=== PATIENT | female | born 1955 | race Caucasian/White ===

== ENCOUNTER 2020-07-19 00:34 | Observation (INO) ==
[2020-07-19] MEDS ORDERED: ONDANSETRON INJ 2 MG/ML 2 ML VIAL ONE (01:13)
[2020-07-19] MEDS ORDERED: SODIUM CHLORIDE 0.9% 1000ML 1,000 ML IV SCH ×2 (01:30→13:00)
[2020-07-19 01:38] LABS: Basophils # (auto) 0.01 K/uL (0-0.2); Basophils % (auto) 0.1 %; Eosinophils # (auto) 0.04 K/uL (0-0.5); Eosinophils % (auto) 0.4 %; Hematocrit (blood only) 37.7 % (37-47); Hemoglobin 12.6 g/dL (12.0-16.0); Immature Granulocytes # (auto) 0.02 K/uL (0.00-0.02); Immature Granulocytes % (auto) 0.2 %; Lymphocytes # (auto) 1.14 K/uL (1.2-3.4); Mean Corpuscular Hemoglobin 30.6 pg (25-34); Mean Corpuscular Hgb Conc 33.4 g/dL (32-36); Mean Corpuscular Volume 91.5 fL (80-100); Mean Platelet Volume 10.3 fL (7.4-10.4); Monocytes # (auto) 0.54 K/uL (0.11-0.59); Monocytes % (auto) 4.7 %; Neutrophils # (auto) 9.67 K/uL (1.4-6.5); Neutrophils % (auto) 84.6 %; Platelet Count 185 K/uL (130-400); RDW Coefficient of Variation 12.8 % (11.5-14.5); RDW Standard Deviation 43.2 fL (36.4-46.3); Red Blood Count 4.12 M/uL (4.2-5.4); White Blood Count 11.42 K/uL (4.8-10.8)
--- NOTE | 2020-07-19 01:38 | Emergency Department Note ---
Impression & Plan Nausea vomiting and diarrhea ED Provider Note NAME: NISHA CAMPUZANO AGE: 64 SEX: F ARRIVES VIA: Walk-In INFORMANT: Patient and her ED PROVIDER(S): Joslyn Wyman DO CHIEF COMPLAINT: Nausea, vomiting, and diarrhea PLAN: [facility] Good MEDICAL DECISION MAKING: This is a healthy 64-year-old female patient who is visiting the area. She went to [facility] and had a calzone with mushroom, spinach, and mercedes and cheese. Around 10 PM this evening, she developed severe nausea, vomiting and diarrhea. She has had a similar event to this consistent with food poisoning. Triage Nursing notes reviewed and agree with them. Additional history obtained from her who accompanies her here. Vital Signs: reviewed and unremarkable Differential diagnosis: Foodborne illness, acute cholecystitis, cardiac ischemia ER treatment provided: IV normal saline IV Zofran x2 IV Compazine x2 Diagnostics interpreted by me: ECG: Normal sinus rhythm at a rate of [address] segment elevation or signs of ischemia. There is no ectopy. QTC is 456 ms. There are no previous EKGs for comparison. Cardiac Monitoring: Normal sinus rhythm at a rate of 93 Laboratory studies: See below HPI: 64/F arrives for evaluation of nausea, vomiting, and diarrhea. The patient ate a calzone with mushroom, spinach, mercedes and cheese around 1800 at a restaurant this evening. She felt fine before eating this food and felt fine afterwards until approximately 2200 when she developed severe nausea, vomiting and diarrhea. She denies any hematochezia or hematemesis. Patient presents here to the emergency department with severe crampy abdominal pain. Patient has no known past medical history. ROS: See above HPI for pertinent positives & negatives. A total of 10 systems reviewed and were otherwise negative. PAST MEDICAL HISTORY:None PAST SURGICAL HISTORY:Previous orthopedic surgery of the wrist and a hernia repair FAMILY HISTORY:See Below SOCIAL HISTORY:Patient is from [facility] MEDICATIONS:None ALLERGIES:None VITALS:See Below PHYSICAL EXAMINATION: HEENT: Head - normocephalic and atraumatic Pupils are equal, round, and reactive to light. Extraocular eye muscles are intact, and sclera are anicteric. Nose - moist nasal mucosa without discharge. Mouth - moist buccal mucosa. Oropharynx is nonerythematous and there is no tonsillar exudate or edema noted. Neck: Supple; no cervical lymphadenopathy or thyromegaly Heart: Regular rate and rhythm. There is a normal S1 and S2 with no murmurs, clicks, or gallops appreciated. Lungs: Clear to auscultation bilaterally with no wheezes, rales, or rhonchi. Abdomen: Soft, diffusely tender, nondistended, with good bowel sounds. There are no palpable pulsatile masses or hepatosplenomegaly. There is no guarding, rigidity, or rebound noted. Extremities: No evidence of cyanosis, clubbing, or edema. There are easily palpable peripheral pulses. Skin: warm and dry with good turgor and no rashes. ED COURSE: Times/Reassessments: 0105: Patient was evaluated in room B8. A complete history and physical was performed. An order was placed for continuous cardiac monitoring. The patient was in a normal sinus rhythm at a rate of 93. A twelve-lead EKG was obtained. An IV lock was initiated and labs were drawn as above. Normal saline bolus was given at 1 L. Patient was given 4 mg of IV Zofran. The patient rested for a period of time but she continued to complain of nausea. She was given a second dose of IV Zofran. I reviewed the results of the laboratory studies with the patient and her . She continued to complain of nausea and was given 5 mg of IV Compazine along with another 500 cc bolus of saline. Unfortunately, the patient is having uncontrollable diarrhea and persistent nausea and vomiting. She was given another dose of IV Compazine. We were unable to control the patient's vomiting and diarrhea here in the emergency department. I discussed the case with the [facility] hospitalist service and they will evaluate for further management. Joslyn Wyman DO Past Med/Surg History Social History Smoking Status: Never smoker Preferred Language: Albanian Allergies Allergies Allergy/AdvReac Type Severity Reaction Status Date / Time No Known Allergies Allergy Verified 07/19/20 01:22 Home Meds Home Medications Medication Instructions Recorded Confirmed No Known Home Medications 07/19/20 07/19/20 Results & Data (ED) Vital Signs Vital Signs - 24 hr 07/19/20 00:38 07/19/20 01:07 07/19/20 01:26 Temperature 36.3 C L Temperature Source Temporal Artery Scan Pulse Rate 93 H 79 79 Pulse Rate from SpO2 Sensor 79 80 Pulse Rhythm Regular Pulse Strength Normal Respiratory Rate 20 17 14 Blood Pressure 128/65 127/68 Blood Pressure Mean 86 87 Blood Pressure Position Sitting Pulse Oximetry 100 98 99 Oxygen Delivery Method Room Air Sepsis Recent Fever Within 48 Hours No Sepsis New/Unexplained Change in Mental Status No Sepsis Action Taken by Nursing No Action Required 07/19/20 01:30 07/19/20 01:31 07/19/20 01:36 Temperature Temperature Source Pulse Rate 83 78 82 Pulse Rate from SpO2 Sensor 84 78 Pulse Rhythm Regular Pulse Strength Respiratory Rate 18 15 20 Blood Pressure 117/66 Blood Pressure Mean 83 Blood Pressure Position Pulse Oximetry 99 100 98 Oxygen Delivery Method Room Air Sepsis Recent Fever Within 48 Hours Sepsis New/Unexplained Change in Mental Status Sepsis Action Taken by Nursing 07/19/20 02:00 07/19/20 02:01 07/19/20 02:30 Temperature Temperature Source Pulse Rate 79 82 89 Pulse Rate from SpO2 Sensor 79 82 90 Pulse Rhythm Pulse Strength Respiratory Rate 16 15 14 Blood Pressure 117/54 L 118/58 L Blood Pressure Mean 75 78 Blood Pressure Position Pulse Oximetry 93 98 97 Oxygen Delivery Method Sepsis Recent Fever Within 48 Hours Sepsis New/Unexplained Change in Mental Status Sepsis Action Taken by Nursing 07/19/20 02:31 07/19/20 03:00 07/19/20 03:01 Temperature Temperature Source Pulse Rate 93 H 97 H 101 H Pulse Rate from SpO2 Sensor 91 H 102 H Pulse Rhythm Pulse Strength Respiratory Rate 16 18 21 Blood Pressure 102/87 Blood Pressure Mean 92 Blood Pressure Position Pulse Oximetry 96 99 Oxygen Delivery Method Sepsis Recent Fever Within 48 Hours Sepsis New/Unexplained Change in Mental Status Sepsis Action Taken by Nursing 07/19/20 03:30 07/19/20 03:31 07/19/20 04:00 Temperature Temperature Source Pulse Rate 86 87 87 Pulse Rate from SpO2 Sensor 86 87 88 Pulse Rhythm Pulse Strength Respiratory Rate 15 18 20 Blood Pressure 120/68 118/57 L Blood Pressure Mean 85 77 Blood Pressure Position Pulse Oximetry 95 96 96 Oxygen Delivery Method Sepsis Recent Fever Within 48 Hours Sepsis New/Unexplained Change in Mental Status Sepsis Action Taken by Nursing 07/19/20 04:01 07/19/20 04:30 07/19/20 04:31 Temperature Temperature Source Pulse Rate 89 85 86 Pulse Rate from SpO2 Sensor 88 84 85 Pulse Rhythm Pulse Strength Respiratory Rate 16 19 18 Blood Pressure 119/55 L Blood Pressure Mean 76 Blood Pressure Position Pulse Oximetry 97 95 94 Oxygen Delivery Method Sepsis Recent Fever Within 48 Hours Sepsis New/Unexplained Change in Mental Status Sepsis Action Taken by Nursing 07/19/20 05:05 07/19/20 05:25 Temperature Temperature Source Pulse Rate 91 H 83 Pulse Rate from SpO2 Sensor 92 H 84 Pulse Rhythm Pulse Strength Respiratory Rate 17 18 Blood Pressure 117/65 Blood Pressure Mean 82 Blood Pressure Position Pulse Oximetry 96 96 Oxygen Delivery Method Sepsis Recent Fever Within 48 Hours Sepsis New/Unexplained Change in Mental Status Sepsis Action Taken by Nursing Laboratory Data Result diagrams: 07/19/20 01:17 07/19/20 01:17 Lab Results 07/19/20 07/19/20 07/19/20 Range/Units 01:17 01:17 06:35 WBC 11.42 H (4.8-10.8) K/uL RBC 4.12 L (4.2-5.4) M/uL Hgb 12.6 (12.0-16.0) g/dL Hct 37.7 (37-47) % MCV 91.5 (80-100) fL MCH 30.6 (25-34) pg MCHC 33.4 (32-36) g/dL RDW Std Deviation 43.2 (36.4-46.3) fL RDW Coeff of Jeet 12.8 (11.5-14.5) % Plt Count 185 (130-400) K/uL MPV 10.3 (7.4-10.4) fL Immature Gran % (Auto) 0.2 % Neut % (Auto) 84.6 % Lymph % (Auto) 10.0 % [place] % (Auto) 4.7 % Eos % (Auto) 0.4 % Baso % (Auto) 0.1 % Neut # (Auto) 9.67 H (1.4-6.5) K/uL Lymph # (Auto) 1.14 L (1.2-3.4) K/uL [place] # (Auto) 0.54 (0.11-0.59) K/uL Eos # (Auto) 0.04 (0-0.5) K/uL Baso # (Auto) 0.01 (0-0.2) K/uL Immature Gran # (Auto) 0.02 (0.00-0.02) K/uL Sodium 144 (136-145) mmol/L Potassium 4.0 (3.5-5.1) mmol/L Chloride 109 H (98-107) mmol/L Carbon Dioxide 31 (21-32) mmol/L Anion Gap 4.0 (3-11) BUN 15 (7-18) mg/dl Creatinine 0.84 (0.6-1.2) mg/dl Est Cr Clr Drug Dosing 62.5 ml/min Est GFR ( Amer) 86.3 ml/min Est GFR (Non-Af Amer) 74.5 ml/min BUN/Creatinine Ratio 17.9 (10-20) Glucose 118 H (70-99) mg/dl Calcium 8.5 (8.5-10.1) mg/dl Total Bilirubin 0.3 (0.2-1) mg/dl AST 21 (15-37) U/L ALT 28 (12-78) U/L Alkaline Phosphatase 89 (45-117) U/L Total Protein 7.3 (6.4-8.2) gm/dl Albumin 3.7 (3.4-5.0) gm/dl Globulin 3.6 (2.5-4.0) gm/dl Albumin/Globulin Ratio 1.0 (0.9-2) COVID-19 Eval Order Covid19 at [facility] Administered Medications Discontinued Medications Sodium Chloride (Nss 1000ml) 1,000 mls @ 999 mls/hr IV .Q1H1M ALISA Stop: 07/19/20 02:30 Last Infusion: 07/19/20 02:58 Dose: 0 mls/hr Documented by: [id number] Admin: 07/19/20 01:14 Dose: 999 mls/hr Documented by: [id number] Sodium Chloride (Nss) 500 mls @ 999 mls/hr IV .Q31M ONE Stop: 07/19/20 03:22 Last Infusion: 07/19/20 03:35 Dose: 0 mls/hr Documented by: [id number] Admin: 07/19/20 03:04 Dose: 999 mls/hr Documented by: [id number] Prochlorperazine (Compazine) 1 mls @ 1 mls/min IV ONE ONE Stop: 07/19/20 02:53 Last Admin: 07/19/20 03:04 Dose: 1 mls/min Documented by: [id number] Prochlorperazine (Compazine) 1 mls @ 1 mls/min IV ONE ONE Stop: 07/19/20 05:17 Last Admin: 07/19/20 05:21 Dose: 1 mls/min Documented by: [id number] Ondansetron HCl (Ondansetron Inj 2 Mg/Ml 2 Ml Vial) Confirm Administered Dose 4 mg .ROUTE .STK-MED ONE Stop: 07/19/20 01:14 Last Admin: 07/19/20 01:14 Dose: 4 mg Documented by: [id number] Ondansetron HCl (Ondansetron Inj 2 Mg/Ml 2 Ml Vial) 4 mg IV NOW STA Stop: 07/19/20 01:50 Last Admin: 07/19/20 01:54 Dose: 4 mg Documented by: [id number] Discharge Plan Visit Data Chief Complaint: GI Assessment Stated Complaint: FOOD POISONING ED Provider: Joslyn Wyman Discharge Problem: Nausea vomiting and diarrhea Forms Stand Alone Forms: [facility] Prescriptions Prescriptions: No Action No Known Home Medications RF: 0
[2020-07-19 01:49] LABS: Albumin Level 3.7 gm/dl (3.4-5.0); BUN Creatinine Ratio 17.9 (10-20); Calcium 8.5 mg/dl (8.5-10.1); Creatinine Clr Calc Pharmacy 62.5 ml/min; Est GFR (African American) 86.3 ml/min; Est GFR (Non-African American) 74.5 ml/min
[2020-07-19] MEDS ORDERED: ONDANSETRON INJ 2 MG/ML 2 ML VIAL IV STA (01:49)
[2020-07-19 01:52] LABS: Bilirubin,Total 0.3 mg/dl (0.2-1); Globulin 3.6 gm/dl (2.5-4.0); Total Protein 7.3 gm/dl (6.4-8.2)
[2020-07-19] MEDS ORDERED: SODIUM CHLORIDE 0.9% 500 ML IV ONE (02:52)
[2020-07-19] MEDS ORDERED: PROCHLORPERAZINE 1 ML IV ONE ×2 (02:52→05:16)
[2020-07-19] MEDS: SODIUM CHLORIDE 0.9% 500 ML IV SCH ×2 (08:02→11:37)
--- NOTE | 2020-07-19 09:13 | XRay Report ---
XR chest 1V portable HISTORY: Nausea. Vomiting. COMPARISON: None. FINDINGS: The lungs are clear. Cardiac silhouette is normal in size. No pleural effusions. No pneumot horax. IMPRESSION: No acute process. ACT 112: Negative or not required by law. Electronically signed by: Albert Martini M.D. 07/19/2020 9:11 AM
[2020-07-19] MEDS ORDERED: PROMETHAZINE HCL 6.25 MG in SODIUM CHLORIDE 0.9% 50 ML IV STA (09:29)
[2020-07-19] MEDS ORDERED: PROMETHAZINE 6.25 MG/50.25 ML BAG IV STA (09:30)
--- NOTE | 2020-07-19 09:41 | Hospitalist Consultation ---
Date of Consultation July 19, 2020 Assessment & Plan (1) Nausea vomiting and diarrhea: secondary to food intake, possible food poisoning already improved with zofran, compazine not as effective Got 1L NSS and finishing 500cc @ 125cc/hr currently Will try dose of Phergan IV x1, if improved, patient would like to go home Discussed plan with ER provider and to reassess after antiemetics and IVF for possible d/c today from ER Educated to return if febrile, worsening pain, blood in stool/vomiting, inability to keep up with hydration/intake or for any other symptoms concerning for her. Patient and agreed to above plan History of Present Illness Reason for Consultation: abdominal pain, n/v/d Requesting Physician: Dr Wyman Attending Physician: Dr Wyman History of Present Illness 64 yo female with PMHx significant only for small umbilical hernia repair with mesh. Was at [facility] last evening and had mushroom/spinach/mercedes calzone and developed subsequent n/v/d. She notes similar experience in the past with food poisoning. She notes she got zofran x 2 and compazine and typically is sensitive to medication. In the past, zofran has been effective, and her nausea has improved just not resolved. She has much less nausea, no further vomiting since 6:30-7am and diarrhea has slowed. No blood in stool, just liquid and had been copious but has slowed. No fever, chills chest pain, shortness of breath headache or other associated symptoms. They are from [place] and ideally would like to go home after trial of phenergan and finish her IVF. If she is able to tolerate diet and n/v controlled, will plan on discharge from ER. Discussed with ER physician regarding plan and will hope for discharge if above successful and resolving her issues. WBC elevated but likely reactive. EKG NSR. CXR no acute process. CMP without electrolyte abnormality or elevation in LFTs. Afebrile. VSS Allergies Allergy/AdvReac Type Severity Reaction Status Date / Time No Known Allergies Allergy Verified 07/19/20 01:22 Home Medications Medication Instructions Recorded Confirmed Type promethazine 12.5 mg PO Q6H PRN #10 tab 07/19/20 Rx Patient History Medical History (Updated 07/19/20 @ 09:36 by Elenita Herzog PA-C) Umbilical hernia Social History Smoking Status: Never smoker Preferred Language: Khmer Review of Systems Review of Systems: All systems reviewed & are unremarkable except as noted in HPI & below Constitutional: no fever and no chills Eyes: no diplopia and no eye pain Ear, Nose, Mouth, Throat: no sore throat and no dysphagia Respiratory: no cough and no dyspnea Cardiovascular: no chest pain and no dyspnea Gastrointestinal: + nausea (decreased) and + vomiting (less, no hematemesis or coffe ground emesis) Genitourinary: no difficulty urinating and no urinary urgency Physical Exam Constitutional: WD/WN, vitals as above cooperative and comfortable; no acute distress Eyes: + anicteric sclerae and PERRL ENMT: Ears: no hearing impairment and no external ear abnormality Neck: normal visual inspection and trachea midline Respiratory: normal respiratory effort, lungs clear to auscultation Cardiovascular: RRR, no murmur, no edema Gastrointestinal (Abdomen): Inspection/Auscultation: abdomen normal to inspection and normal bowel sounds; abdomen not distended Percussion/Palpation: + abdomen tender (minimal diffuse) and abdomen soft; no guarding and abdomen not rigid Musculoskeletal: no cyanosis or clubbing, extremities motor strength 5/5 Skin: no rashes, warm and dry Neurologic: PERRL, EOMI, accommodation nl, no face palsy, no dysarthria Psychiatric: A+Ox3, euthymic affect Lymphatic: no cervical or axillary lymphadenopathy Results & Data Results & Data ([facility]) Vital Signs (Past 12 Hours) Vital Signs Temp Pulse Resp BP Pulse Ox 07/19/20 09:00 85 15 109/64 97 07/19/20 08:31 81 15 96 07/19/20 08:30 83 15 111/60 96 07/19/20 08:02 81 17 95 07/19/20 08:01 88 20 111/64 96 07/19/20 08:00 91 H 14 95 07/19/20 07:31 80 22 96 07/19/20 06:39 84 17 112/59 L 96 07/19/20 06:38 87 22 95 07/19/20 05:31 78 16 96 07/19/20 05:30 79 16 120/67 96 07/19/20 05:26 80 23 96 07/19/20 05:25 83 18 117/65 96 07/19/20 05:05 91 H 17 96 07/19/20 04:31 86 18 94 07/19/20 04:30 85 19 119/55 L 95 07/19/20 04:01 89 16 97 07/19/20 04:00 87 20 118/57 L 96 07/19/20 03:31 87 18 96 07/19/20 03:30 86 15 120/68 95 07/19/20 03:01 101 H 21 102/87 99 07/19/20 03:00 97 H 18 07/19/20 02:31 93 H 16 96 07/19/20 02:30 89 14 118/58 L 97 07/19/20 02:01 82 15 98 07/19/20 02:00 79 16 117/54 L 93 07/19/20 01:36 82 20 98 07/19/20 01:31 78 15 100 07/19/20 01:30 83 18 117/66 99 07/19/20 01:26 79 14 99 07/19/20 01:07 79 17 127/68 98 07/19/20 00:38 36.3 C L 93 H 20 128/65 100 Laboratory Results 07/19/20 07/19/20 07/19/20 Range/Units 06:35 06:35 01:17 WBC (4.8-10.8) K/uL RBC (4.2-5.4) M/uL Hgb (12.0-16.0) g/dL Hct (37-47) % MCV (80-100) fL MCH (25-34) pg MCHC (32-36) g/dL RDW Std Deviation (36.4-46.3) fL RDW Coeff of Jeet (11.5-14.5) % Plt Count (130-400) K/uL MPV (7.4-10.4) fL Immature Gran % (Auto) % Neut % (Auto) % Lymph % (Auto) % [place] % (Auto) % Eos % (Auto) % Baso % (Auto) % Neut # (Auto) (1.4-6.5) K/uL Lymph # (Auto) (1.2-3.4) K/uL [place] # (Auto) (0.11-0.59) K/uL Eos # (Auto) (0-0.5) K/uL Baso # (Auto) (0-0.2) K/uL Immature Gran # (Auto) (0.00-0.02) K/uL Sodium 144 (136-145) mmol/L Potassium 4.0 (3.5-5.1) mmol/L Chloride 109 H (98-107) mmol/L Carbon Dioxide 31 (21-32) mmol/L Anion Gap 4.0 (3-11) BUN 15 (7-18) mg/dl Creatinine 0.84 (0.6-1.2) mg/dl Est Cr Clr Drug Dosing 62.5 ml/min Est GFR ( Amer) 86.3 ml/min Est GFR (Non-Af Amer) 74.5 ml/min BUN/Creatinine Ratio 17.9 (10-20) Glucose 118 H (70-99) mg/dl Calcium 8.5 (8.5-10.1) mg/dl Total Bilirubin 0.3 (0.2-1) mg/dl AST 21 (15-37) U/L ALT 28 (12-78) U/L Alkaline Phosphatase 89 (45-117) U/L Total Protein 7.3 (6.4-8.2) gm/dl Albumin 3.7 (3.4-5.0) gm/dl Globulin 3.6 (2.5-4.0) gm/dl Albumin/Globulin Ratio 1.0 (0.9-2) COVID-19 Eval Order Covid19 at [facility] SARS-CoV-2 (PCR) NEGATIVE (Negative) 07/19/20 Range/Units 01:17 WBC 11.42 H (4.8-10.8) K/uL RBC 4.12 L (4.2-5.4) M/uL Hgb 12.6 (12.0-16.0) g/dL Hct 37.7 (37-47) % MCV 91.5 (80-100) fL MCH 30.6 (25-34) pg MCHC 33.4 (32-36) g/dL RDW Std Deviation 43.2 (36.4-46.3) fL RDW Coeff of Jeet 12.8 (11.5-14.5) % Plt Count 185 (130-400) K/uL MPV 10.3 (7.4-10.4) fL Immature Gran % (Auto) 0.2 % Neut % (Auto) 84.6 % Lymph % (Auto) 10.0 % [place] % (Auto) 4.7 % Eos % (Auto) 0.4 % Baso % (Auto) 0.1 % Neut # (Auto) 9.67 H (1.4-6.5) K/uL Lymph # (Auto) 1.14 L (1.2-3.4) K/uL [place] # (Auto) 0.54 (0.11-0.59) K/uL Eos # (Auto) 0.04 (0-0.5) K/uL Baso # (Auto) 0.01 (0-0.2) K/uL Immature Gran # (Auto) 0.02 (0.00-0.02) K/uL Sodium (136-145) mmol/L Potassium (3.5-5.1) mmol/L Chloride (98-107) mmol/L Carbon Dioxide (21-32) mmol/L Anion Gap (3-11) BUN (7-18) mg/dl Creatinine (0.6-1.2) mg/dl Est Cr Clr Drug Dosing ml/min Est GFR ( Amer) ml/min Est GFR (Non-Af Amer) ml/min BUN/Creatinine Ratio (10-20) Glucose (70-99) mg/dl Calcium (8.5-10.1) mg/dl Total Bilirubin (0.2-1) mg/dl AST (15-37) U/L ALT (12-78) U/L Alkaline Phosphatase (45-117) U/L Total Protein (6.4-8.2) gm/dl Albumin (3.4-5.0) gm/dl Globulin (2.5-4.0) gm/dl Albumin/Globulin Ratio (0.9-2) COVID-19 Eval Order SARS-CoV-2 (PCR) (Negative) Diagnostic Findings Chest X-Ray 07/19/20 08:40 XR chest 1V portable HISTORY: Nausea. Vomiting. COMPARISON: None. FINDINGS: The lungs are clear. Cardiac silhouette is normal in size. No pleural effusions. No pneumothorax. IMPRESSION: No acute process. ACT 112: Negative or not required by law. Electronically signed by: Albert Martini M.D. 07/19/2020 9:11 AM PG Care Time/CCT Total # of Minutes Spent Total Time Spent with Patient: Total time spent is greater than 50% in coordination of care (as documented) at patient's floor/unit and/or counseling patient: Coding Level of Care Code 14149 Office/OBS Consult Lvl 3 Diagnoses Nausea vomiting and diarrhea R11.2; R19.7
[2020-07-19] MEDS ORDERED: LOPERAMIDE HCL 2 MG CAP PO STA (10:21)
--- NOTE | 2020-07-19 11:00 | History & Physical Report ---
Date of Service July 19, 2020 Assessment & Plan (1) Nausea vomiting and diarrhea: secondary to food intake, possible food poisoning -- ate calzone at [facility] mercedes/spinach/mushroom last evening prior to acute onset already improved with zofran, compazine not as effective Got 1L NSS and finishing 500cc @ 125cc/hr currently Observe to medical floor Pepcid IV BID Phenergan prn nausea Tylenol prn fever, pain NSS for overnight Stool cultures, WBC, cdiff Full liquid diet-- advance as tolerated Checking Lipase, KUB No fever WBC elevation likely secondary to n/v but will trend on AM labs UA ordered for n/v however did not endorse any urinary symptoms DVT proph -- SCDs, frequent ambulation. Low risk for DVT Full code Dispo: from [place], observation overnight with likely d/c in AM History of Present Illness Chief Complaint: n/v/d Primary Care Provider: NO PCP 64 yo female with PMHx significant only for small umbilical hernia repair with mesh. Was at [facility] last evening and had mushroom/spinach/mercedes calzone and developed subsequent n/v/d. She notes similar experience in the past with food poisoning. She notes she got zofran x 2 and compazine and typically is sensitive to medication. In the past, zofran has been effective, and her nausea has improved just not resolved. She has much less nausea, no further vomiting since 6:30-7am and diarrhea has slowed. No blood in stool, just liquid and had been copious but has slowed. No fever, chills chest pain, shortness of breath headache or other associated symptoms. They are from [place] and ideally would like to go home after trial of phenergan and finish her IVF. If she is able to tolerate diet and n/v controlled, will plan on discharge from ER. Discussed with ER physician regarding plan and will hope for discharge if above successful and resolving her issues. WBC elevated but likely reactive. EKG NSR. CXR no acute process. CMP without electrolyte abnormality or elevation in LFTs. Afebrile. VSS Patient still not feeling back to usual self after Phenergan and will admit for observation overnight with IVF and antiemetics, PPI. Allergies Allergy/AdvReac Type Severity Reaction Status Date / Time No Known Allergies Allergy Verified 07/19/20 01:22 Home Medications Medication Instructions Recorded Confirmed Type promethazine 12.5 mg PO Q6H PRN #10 tab 07/19/20 Rx Past Med/Surg History Medical History (Updated 07/19/20 @ 09:36 by Elenita Herzog PA-C) Umbilical hernia Social History Smoking Status: Never smoker Hx Alcohol Use: No Hx Substance Use: No Preferred Language: [place] [employer] Program Director Required: No Beliefs That Will Affect Care: None Current Living Situation: Spouse Other Information That Helps Us Care for You: No Feels Safe at Home: Yes Safety Concerns: Feels Safe At This Time Assistive Devices: None Review of Systems Review of Systems: Review of Systems: All systems reviewed & are unremarkable except as noted in HPI & below Constitutional: no fever and no chills Eyes: no diplopia and no eye pain Ear, Nose, Mouth, Throat: no sore throat and no dysphagia Respiratory: no cough and no dyspnea Cardiovascular: no chest pain and no dyspnea Gastrointestinal: + nausea (decreased) and + vomiting (less, no hematemesis or coffe ground emesis) Genitourinary: no difficulty urinating and no urinary urgency Physical Exam Constitutional: WD/WN, vitals as above cooperative and comfortable; no acute distress Eyes: + anicteric sclerae and PERRL ENMT: Ears: no hearing impairment and no external ear abnormality Neck: normal visual inspection and trachea midline Respiratory: normal respiratory effort, lungs clear to auscultation Cardiovascular: RRR, no murmur, no edema Gastrointestinal (Abdomen): Inspection/Auscultation: abdomen normal to inspection and normal bowel sounds; abdomen not distended Percussion/Palpation: + abdomen tender (minimal diffuse) and abdomen soft; no guarding and abdomen not rigid Musculoskeletal: no cyanosis or clubbing, extremities motor strength 5/5 Skin: no rashes, warm and dry Neurologic: PERRL, EOMI, accommodation nl, no face palsy, no dysarthria Psychiatric: A+Ox3, euthymic affect Lymphatic: no cervical or axillary lymphadenopathy Results & Data Results & Data ([facility]) Vital Signs (Past 12 Hours) Vital Signs Temp Pulse Resp BP Pulse Ox 07/19/20 09:31 77 14 97 07/19/20 09:30 78 21 111/57 L 97 07/19/20 09:01 87 17 96 07/19/20 09:00 85 15 109/64 97 07/19/20 08:31 81 15 96 07/19/20 08:30 83 15 111/60 96 07/19/20 08:02 81 17 95 07/19/20 08:01 88 20 111/64 96 07/19/20 08:00 91 H 14 95 07/19/20 07:31 80 22 96 07/19/20 06:39 84 17 112/59 L 96 07/19/20 06:38 87 22 95 07/19/20 05:31 78 16 96 07/19/20 05:30 79 16 120/67 96 07/19/20 05:26 80 23 96 07/19/20 05:25 83 18 117/65 96 07/19/20 05:05 91 H 17 96 07/19/20 04:31 86 18 94 07/19/20 04:30 85 19 119/55 L 95 07/19/20 04:01 89 16 97 07/19/20 04:00 87 20 118/57 L 96 07/19/20 03:31 87 18 96 07/19/20 03:30 86 15 120/68 95 07/19/20 03:01 101 H 21 102/87 99 07/19/20 03:00 97 H 18 07/19/20 02:31 93 H 16 96 07/19/20 02:30 89 14 118/58 L 97 07/19/20 02:01 82 15 98 07/19/20 02:00 79 16 117/54 L 93 07/19/20 01:36 82 20 98 07/19/20 01:31 78 15 100 07/19/20 01:30 83 18 117/66 99 07/19/20 01:26 79 14 99 07/19/20 01:07 79 17 127/68 98 07/19/20 00:38 36.3 C L 93 H 20 128/65 100 Laboratory Results 07/19/20 07/19/20 07/19/20 Range/Units 06:35 06:35 01:17 WBC (4.8-10.8) K/uL RBC (4.2-5.4) M/uL Hgb (12.0-16.0) g/dL Hct (37-47) % MCV (80-100) fL MCH (25-34) pg MCHC (32-36) g/dL RDW Std Deviation (36.4-46.3) fL RDW Coeff of Jeet (11.5-14.5) % Plt Count (130-400) K/uL MPV (7.4-10.4) fL Immature Gran % (Auto) % Neut % (Auto) % Lymph % (Auto) % [place] % (Auto) % Eos % (Auto) % Baso % (Auto) % Neut # (Auto) (1.4-6.5) K/uL Lymph # (Auto) (1.2-3.4) K/uL [place] # (Auto) (0.11-0.59) K/uL Eos # (Auto) (0-0.5) K/uL Baso # (Auto) (0-0.2) K/uL Immature Gran # (Auto) (0.00-0.02) K/uL Sodium 144 (136-145) mmol/L Potassium 4.0 (3.5-5.1) mmol/L Chloride 109 H (98-107) mmol/L Carbon Dioxide 31 (21-32) mmol/L Anion Gap 4.0 (3-11) BUN 15 (7-18) mg/dl Creatinine 0.84 (0.6-1.2) mg/dl Est Cr Clr Drug Dosing 62.5 ml/min Est GFR ( Amer) 86.3 ml/min Est GFR (Non-Af Amer) 74.5 ml/min BUN/Creatinine Ratio 17.9 (10-20) Glucose 118 H (70-99) mg/dl Calcium 8.5 (8.5-10.1) mg/dl Total Bilirubin 0.3 (0.2-1) mg/dl AST 21 (15-37) U/L ALT 28 (12-78) U/L Alkaline Phosphatase 89 (45-117) U/L Total Protein 7.3 (6.4-8.2) gm/dl Albumin 3.7 (3.4-5.0) gm/dl Globulin 3.6 (2.5-4.0) gm/dl Albumin/Globulin Ratio 1.0 (0.9-2) COVID-19 Eval Order Covid19 at [facility] SARS-CoV-2 (PCR) NEGATIVE (Negative) 07/19/20 Range/Units 01:17 WBC 11.42 H (4.8-10.8) K/uL RBC 4.12 L (4.2-5.4) M/uL Hgb 12.6 (12.0-16.0) g/dL Hct 37.7 (37-47) % MCV 91.5 (80-100) fL MCH 30.6 (25-34) pg MCHC 33.4 (32-36) g/dL RDW Std Deviation 43.2 (36.4-46.3) fL RDW Coeff of Jeet 12.8 (11.5-14.5) % Plt Count 185 (130-400) K/uL MPV 10.3 (7.4-10.4) fL Immature Gran % (Auto) 0.2 % Neut % (Auto) 84.6 % Lymph % (Auto) 10.0 % [place] % (Auto) 4.7 % Eos % (Auto) 0.4 % Baso % (Auto) 0.1 % Neut # (Auto) 9.67 H (1.4-6.5) K/uL Lymph # (Auto) 1.14 L (1.2-3.4) K/uL [place] # (Auto) 0.54 (0.11-0.59) K/uL Eos # (Auto) 0.04 (0-0.5) K/uL Baso # (Auto) 0.01 (0-0.2) K/uL Immature Gran # (Auto) 0.02 (0.00-0.02) K/uL Sodium (136-145) mmol/L Potassium (3.5-5.1) mmol/L Chloride (98-107) mmol/L Carbon Dioxide (21-32) mmol/L Anion Gap (3-11) BUN (7-18) mg/dl Creatinine (0.6-1.2) mg/dl Est Cr Clr Drug Dosing ml/min Est GFR ( Amer) ml/min Est GFR (Non-Af Amer) ml/min BUN/Creatinine Ratio (10-20) Glucose (70-99) mg/dl Calcium (8.5-10.1) mg/dl Total Bilirubin (0.2-1) mg/dl AST (15-37) U/L ALT (12-78) U/L Alkaline Phosphatase (45-117) U/L Total Protein (6.4-8.2) gm/dl Albumin (3.4-5.0) gm/dl Globulin (2.5-4.0) gm/dl Albumin/Globulin Ratio (0.9-2) COVID-19 Eval Order SARS-CoV-2 (PCR) (Negative) Diagnostic Findings Chest X-Ray 07/19/20 08:40 XR chest 1V portable HISTORY: Nausea. Vomiting. COMPARISON: None. FINDINGS: The lungs are clear. Cardiac silhouette is normal in size. No pleural effusions. No pneumothorax. IMPRESSION: No acute process. ACT 112: Negative or not required by law. Electronically signed by: Albert Martini M.D. 07/19/2020 9:11 AM Supervising Physician Co-Signing Physician Notes Patient was seen and examined independently I discussed the case with Elenita NELSON I reviewed pertinent past medical social family history and also the plan of care and agree with the plan of care. Patient is traveling through the area she had some pizza afterwards she became ill with nausea vomiting diarrhea. She is attempted to be resuscitated in the ER which was unsuccessful. Initial laboratories are unremarkable with exception of mild leukopenia and thrombocytopenia Examination is benign with exception of some nondescript tenderness her abdomen. Plain x-ray imaging of her abdomen which is unremarkable if she continues have problems tomorrow we may consider doing CT abdomen pelvis Any exceptions will be noted below PG Care Time/CCT Total # of Minutes Spent Total Time Spent with Patient: Total time spent is greater than 50% in coordination of care (as documented) at patient's floor/unit and/or counseling patient: Coding Level of Care Code 48554 OBS Care - Level 3 Diagnoses Nausea vomiting and diarrhea R11.2; R19.7
[2020-07-19] MEDS ORDERED: PROMETHAZINE HCL 12.5 MG in SODIUM CHLORIDE 0.9% 50 ML IV PRN (11:04)
[2020-07-19] MEDS ORDERED: FAMOTIDINE 20MG/5ML IV PUSH IV ONE (11:32)
[2020-07-19] MEDS: FAMOTIDINE 20 MG in SYRINGE 3 ML IV SCH ×2 (11:33→20:59)
--- NOTE | 2020-07-19 12:15 | XRay Report ---
KUB HISTORY: Nausea. Vomiting. Diarrhea. COMPARISON: None. FINDINGS: The bowel gas pattern is unremarkable. There are no dilated loops of small bowel to suggest an obstruction. No renal calculi. No ureteral calculi. No definite pneumoperitoneum or pneumatosis. IMPRESSION: Unremarkable KUB. No evidence for bowel obstruction. ACT 112: Negative or not required by law. Electronically signed by: Albert Martini M.D. 07/19/2020 12:14 PM
--- NOTE | 2020-07-19 12:47 | Electrocardiogram Report ---
Test Reason : Blood Pressure : / mmHG Vent. Rate : 079 BPM Atrial Rate : 079 BPM P-R Int : 158 ms QRS Dur : 078 ms QT Int : 398 ms P-R-T Axes : 075 072 047 degrees QTc Int : 456 ms Normal sinus rhythm Normal ECG No previous ECGs available Confirmed by Hawk Encarnacion ([id number]) on 07/19/2020 12:46:36 PM Referred By: REFERRED SELF Confirmed By:Hawk Encarnacion
[2020-07-19] MEDS ORDERED: ACETAMINOPHEN 325 MG TAB PO PRN (12:56)
[2020-07-19] MEDS ORDERED: ALUMINUM/MAGNESIUM SUSP 30 ML UDC PO PRN (13:44)
[2020-07-19] MEDS: IBUPROFEN 200 MG TAB PO PRN (15:42)
[2020-07-19] MEDS ORDERED: ONDANSETRON INJ 2 MG/ML 2 ML VIAL IV PRN (15:53)
[2020-07-19 16:34] LABS: Hematocrit (blood only) 33.2 % (37-47); Mean Corpuscular Hemoglobin 30.5 pg (25-34); Mean Corpuscular Hgb Conc 33.1 g/dL (32-36); Mean Platelet Volume 9.9 fL (7.4-10.4); Platelet Count 106 K/uL (130-400); RDW Standard Deviation 43.7 fL (36.4-46.3); Red Blood Count 3.61 M/uL (4.2-5.4); White Blood Count 4.34 K/uL (4.8-10.8)
[2020-07-19 16:37] LABS: Lymphocytes # (auto) 0.27 K/uL (1.2-3.4); Lymphocytes % (auto) 6.2 %; Monocytes % (auto) 2.3 %; Neutrophils # (auto) 3.97 K/uL (1.4-6.5); Neutrophils % (auto) 91.5 %
[2020-07-19 16:39] LABS: BUN Creatinine Ratio 19.5 (10-20); Calcium 7.2 mg/dl (8.5-10.1); Creatinine Clr Calc Pharmacy 84.7 ml/min; Est GFR (Non-African American) 96.6 ml/min; Potassium 3.5 mmol/L (3.5-5.1)
[2020-07-19] MEDS ORDERED: CALCIUM GLUCONATE 10% 1,000 MG in SODIUM CHLORIDE 0.9% 50 ML IV ONE (16:42)
[2020-07-19] MEDS: LACTATED RINGER'S 1,000 ML IV SCH (17:31)
[2020-07-19 22:20] LABS: Appearance Urine Clear (Clear); Bacteria Urine Automated Negative (Negative); Bilirubin Urine Negative (Negative); Blood Urine Negative (Negative); Color Urine Yellow; Glucose Urine UA Negative (Negative); Ketones Urine Negative (Negative); Leukocyte Esterase Urine 1+ (Negative); Nitrite Urine Negative (Negative); Protein Urine Negative (Negative); RBC Urine Automated 0-4 /hpf (0-4); Urobilinogen Urine Negative (Negative)
[2020-07-20] MEDS: LACTATED RINGER'S 1,000 ML IV SCH (01:55)
[2020-07-20 07:20] LABS: Basophils # (auto) 0.01 K/uL (0-0.2); Basophils % (auto) 0.3 %; Eosinophils # (auto) 0.01 K/uL (0-0.5); Eosinophils % (auto) 0.3 %; Hematocrit (blood only) 32.9 % (37-47); Hemoglobin 11.1 g/dL (12.0-16.0); Lymphocytes # (auto) 0.72 K/uL (1.2-3.4); Lymphocytes % (auto) 23.2 %; Mean Corpuscular Hemoglobin 30.2 pg (25-34); Mean Corpuscular Hgb Conc 33.7 g/dL (32-36); Mean Corpuscular Volume 89.6 fL (80-100); Mean Platelet Volume 9.6 fL (7.4-10.4); Monocytes # (auto) 0.21 K/uL (0.11-0.59); Monocytes % (auto) 6.8 %; Neutrophils # (auto) 2.16 K/uL (1.4-6.5); Neutrophils % (auto) 69.4 %; Platelet Count 106 K/uL (130-400); RDW Coefficient of Variation 13.1 % (11.5-14.5); RDW Standard Deviation 43.2 fL (36.4-46.3); Red Blood Count 3.67 M/uL (4.2-5.4); White Blood Count 3.11 K/uL (4.8-10.8)
[2020-07-20 07:43] LABS: Albumin Level 2.9 gm/dl (3.4-5.0); BUN Creatinine Ratio 15.9 (10-20); Bilirubin,Total 0.4 mg/dl (0.2-1); Calcium 8.7 mg/dl (8.5-10.1); Creatinine Clr Calc Pharmacy 72.9 ml/min; Est GFR (Non-African American) 89.8 ml/min; Globulin 3.1 gm/dl (2.5-4.0); Magnesium 1.8 mg/dl (1.8-2.4); Potassium 3.5 mmol/L (3.5-5.1)
--- NOTE | 2020-07-20 08:11 | Discharge Summary ---
Date of Service July 20, 2020 Admission HPI Per Admitting Provider 64 yo female with PMHx significant only for small umbilical hernia repair with mesh. Was at [facility] last evening and had mushroom/spinach/mercedes calzone and developed subsequent n/v/d. She notes similar experience in the past with food poisoning. She notes she got zofran x 2 and compazine and typically is sensitive to medication. In the past, zofran has been effective, and her nausea has improved just not resolved. She has much less nausea, no further vomiting since 6:30-7am and diarrhea has slowed. No blood in stool, just liquid and had been copious but has slowed. No fever, chills chest pain, shortness of breath headache or other associated symptoms. They are from [place] and ideally would like to go home after trial of phenergan and finish her IVF. If she is able to tolerate diet and n/v controlled, will plan on discharge from ER. Discussed with ER physician regarding plan and will hope for discharge if above successful and resolving her issues. WBC elevated but likely reactive. EKG NSR. CXR no acute process. CMP without electrolyte abnormality or elevation in LFTs. Afebrile. VSS Patient still not feeling back to usual self after Phenergan and will admit for observation overnight with IVF and antiemetics, PPI. Admission Exam Per Admitting Provider Constitutional: WD/WN, vitals as above cooperative and comfortable; no acute distress Eyes: + anicteric sclerae and PERRL ENMT: Ears: no hearing impairment and no external ear abnormality Neck: normal visual inspection and trachea midline Respiratory: normal respiratory effort, lungs clear to auscultation Cardiovascular: RRR, no murmur, no edema Gastrointestinal (Abdomen): Inspection/Auscultation: abdomen normal to inspection and normal bowel sounds; abdomen not distended Percussion/Palpation: + abdomen tender (minimal diffuse) and abdomen soft; no guarding and abdomen not rigid Musculoskeletal: no cyanosis or clubbing, extremities motor strength 5/5 Skin: no rashes, warm and dry Neurologic: PERRL, EOMI, accommodation nl, no face palsy, no dysarthria Psychiatric: A+Ox3, euthymic affect Lymphatic: no cervical or axillary lymphadenopathy Principal Diagnosis Nausea, vomiting, diarrhea secondary to food ingestion Discharge Exam Constitutional WD/WN, vitals as above cooperative and comfortable; no acute distress Eyes + anicteric sclerae and PERRL ENMT Ears: no hearing impairment and no external ear abnormality Neck normal visual inspection and trachea midline Respiratory normal respiratory effort, lungs clear to auscultation Cardiovascular RRR, no murmur, no edema Gastrointestinal (Abdomen) Inspection/Auscultation: abdomen normal to inspection and normal bowel sounds; abdomen not distended Percussion/Palpation: abdomen soft; abdomen nontender, no guarding and abdomen not rigid Musculoskeletal no cyanosis or clubbing, extremities motor strength 5/5 Skin no rashes, warm and dry Neurologic PERRL, EOMI, accommodation nl, no face palsy, no dysarthria Psychiatric A+Ox3, euthymic affect Lymphatic no cervical or axillary lymphadenopathy Discharge Data Allergies Allergy/AdvReac Type Severity Reaction Status Date / Time No Known Allergies Allergy Verified 07/19/20 01:22 Consultations 07/19/20 06:21 ED Decision to Admit Stat Ordered Studies Chest X-Ray 07/19/20 08:40 XR chest 1V portable HISTORY: Nausea. Vomiting. COMPARISON: None. FINDINGS: The lungs are clear. Cardiac silhouette is normal in size. No pleural effusions. No pneumothorax. IMPRESSION: No acute process. ACT 112: Negative or not required by law. Electronically signed by: Albert Martini M.D. 07/19/2020 9:11 AM KUB X-Ray 07/19/20 11:04 KUB HISTORY: Nausea. Vomiting. Diarrhea. COMPARISON: None. FINDINGS: The bowel gas pattern is unremarkable. There are no dilated loops of small bowel to suggest an obstruction. No renal calculi. No ureteral calculi. No definite pneumoperitoneum or pneumatosis. IMPRESSION: Unremarkable KUB. No evidence for bowel obstruction. ACT 112: Negative or not required by law. Electronically signed by: Albert Martini M.D. 07/19/2020 12:14 PM Hospital Course (1) Nausea vomiting and diarrhea: secondary to food intake, possible food poisoning -- [place] [employer] mer[employer]/spinach/mushroom last evening prior to acute onset and rapid resolution already improved with zofran, compazine not as effective in the emergency department Initially patient and are hopeful for discharge from emergency department with fluid resuscitation and antiemetics however patient was still not feeling back to her baseline and required overnight admission for further antiemetics and fluid resuscitation for a total of additional 2 L Diarrhea had slowed and ultimately stopped prior to discharge C. difficile negative, stool cultures negative on preliminary discharge KUB was without acute findings calculi dilated loops of bowel Tolerated full liquid diet advance as tolerated without further nausea vomiting or diarrhea Patient was administered Pepcid IV twice daily during this period of time and discussed possible [id number] use if develops again in the future White blood count was elevated secondary to nausea and vomiting and trended down and raf discharge secondary to viral illness possibly secondary to her food ingestion and having pizza the night prior She not have any fevers Lipase was within normal limits No peritoneal signs or localized abdominal pain requiring further imaging but did educate on warning signs when to return to the emergency department if her condition does worsen in the future Discharged home with and plans to return back to [place] when done visiting the area Total Time Total Time Spent Total Time Spent (In Minutes): 60 Discharge Plan Discharge Items Patient Disposition: Home - Self-Care Reason For Visit: NAUSEA,VOMITIG,DIARRHEA Discharge Diagnosis: NAUSEA, VOMITING, DIARRHEA RELATED TO FOOD INGESTION Goals: You have been hospitalized for an acute medical problem. During your stay at [facility], we have made an effort to correct the problem that brought you to the hospital while keeping you as comfortable as possible. Medications were used to bring your condition under control and your discharge instructions will include directions for any medications you should take after leaving the hospital. Please make sure you see your Primary Care Provider as part of your follow up plan. Activity: Resume your previous activity Non-emergency contact: Primary Care Provider Call non-emergency contact if: you have any medication questions, your symptoms worsen, your pain is concerning for you and you have a fever Follow-up/Referrals: PCP,NO [Primary Care Provider] - Diet: Regular Diet Comment: ADVANCE TOLERATED Addtl Attending Provider Instructions: He was hospitalized for nausea, vomiting, and diarrhea. This was felt to be related to food ingestion regarding meal with calzone prior to admission. He did have an elevated white count on admission which was likely reactive and related to your nausea and vomiting. This has resolved on repeat labs and actually on the lower end of normal, which leans towards a viral illness. Your electrolytes are within normal limits and you were provided supportive care with IV fluids and antiemetics as needed. You are being sent with a short prescription for antiemetics (ondansetron "Zofran") which dissolve under the tongue, and you can use these every 4-6 hours as needed for nausea/vomiting if this should recur. Please note this can cause a headache and you can take tylenol/ibuprofen as needed but please do not exceed maximum dose 3,000mg tylenol or 2,400mg of ibuprofen in a 24 hour period of time. Stool studies were negative for C. difficile. Other stool studies were collected and pending at time of discharge. You should follow up with your primary care provider to monitor your progress after discharge. You were also given medication to help with acid reflux, Pepcid, while in the hospital and you may want to consider taking this on an as needed basis if you have these symptoms in the future. Please return to the emergency department with any fever, chills, worsening abdominal pain, diarrhea, bloody diarrhea, or inability to keep up with oral intake/hydration. It has been a pleasure being a part of the medical team providing for you while you have been in the hospital. Take care! Pending Studies at Discharge: Yes Studies:: Stool cultures -- pending Stand-Alone Forms: My [facility] Medications and DC Order Prescriptions: New ondansetron 4 mg tablet,disintegrating 4 mg PO Q6H PRN (Reason: nausea and vomiting) Qty: 10 RF: 0 Discharge Orders: Discharge Order (Routine); Ordered 07/20/20 Ordered By: Elenita Herzog Admission Data Admit Date/Time: 07/19/20 11:04 Attending Provider: Abhijeet Giraldo Admit Provider: Elenita Herzog Primary Care Provider: PCP,NO Other Providers: Fide Philip Other Interventions: Discharge Summary Assessment (RN) Last Done: 07/20/20 09:11 Coding Level of Care Code 34638 OBS Care - Discharge Diagnoses Nausea vomiting and diarrhea R11.2; R19.7
[2020-07-20] MEDS: FAMOTIDINE 20 MG in SYRINGE 3 ML IV SCH (08:28)
[2020-07-20] MEDS: IBUPROFEN 200 MG TAB PO PRN (10:14)
[2020-07-21 09:03] LABS: Cortisol AM 9.03 mcg/dl (4.3-22.4); Vitamin D, 25 Hydrox 42.3 ng/ml (30-100)
== END 2020-07-20 10:37 | disposition home or self-care (01) ==
LOC: 2W 00:34 → ED 00:34 → 2W 12:19